=== PATIENT | female | born 1965 | race Caucasian/White ===

== ENCOUNTER → 2017-04-08 | Outpatient (CLI) | payer BC, OTHER ==
--- NOTE | 2017-04-08 10:08 | RAD ---
Exam: Right knee radiographs 04/08/2017 at 0957 hours Indication: Right knee pain, specifically lateral side of the patella. Comparison: None available Technique: 3 views of the right knee are provided. Findings: There is no acute fracture or dislocation. No joint space narrowing. There is mild patellofemoral osteophytosis. No knee joint effusion. No soft tissue swelling. No osseous erosion or soft tissue gas. Bone mineralization is within normal limits. Impression: No acute fracture or dislocation.
== END | disposition home or self-care (01) ==
LOC: DXRADRC 09:53
PROVIDERS: ATTEND Nurse Practitioner Family
DX: M25.561 Pain in right knee (principal)
CPT/HCPCS: 73562

== ENCOUNTER 2017-09-23 15:14 | Emergency (ER) | payer BC, OTHER ==
[2017-09-23] MEDS ORDERED: 0.9 % SODIUM CHLORIDE 10 ML DISP.SYRIN. IV PRN (16:15)
--- NOTE | 2017-09-23 16:16 | PHYS DOC ---
Past History Past Medical History: Cancer, Hypothyroid Past Surgical History: Appendectomy, Cancer Surgery, Cholecystectomy, Hysterectomy, Other Additional Past Surgical Histo: bilateral mastectomy Smoking: Non-smoker Alcohol Use: None Drug Use: None Adult General Chief Complaint Chief Complaint: SMOKE INHALATION [facility] HPI Patient is a pleasant 52-year-old female with a known history of breast cancer requiring chemotherapy, radiation therapy and bilateral mastectomies, history of hypothyroidism on thyroid replacement therapy who presents with dizziness and tingling of her fingers and lips that began last night after she feels she is exposed to possible carbon monoxide. Last evening patient was sitting by the fire when her had additional long to the fire but did not open the tract and flu to provide low oxygen to the room. Patient noted this about an hour and half later after sitting there comfortably resting noted that she was somewhat dizzy, tingling of her fingers and mouth is been intermittent for last 12 hours. 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 She denies any abdominal pain but feels lightheaded and dizzy. She has myalgias and feels generally weak. She denies any chest pain, denies any shortness of breath, denies any hearing loss, tinnitus, shortness of breath, but she does feel very "" dehydrated. She denies any sick contacts, denies any recent travel outside the country or recent anabiotic use. no one else in the home was feeling the same way. Review of Systems Review of Systems Constitutional: Denies fever or chills patient just feels generally weak [] Eyes: Denies change in visual acuity, redness, or eye pain [] HENT: Denies nasal congestion or sore throat [] Respiratory: Denies cough or shortness of breath [] Cardiovascular: No additional information not addressed in HPI [] GI: Denies abdominal pain, positive for nausea and vomiting and diarrhea no constipation : Denies dysuria or hematuria [] Musculoskeletal: Denies back pain or joint pain positive for myalgias[] Integument: Denies rash or skin lesions [] Neurologic: Denies headache, focal weakness positive for paresthesias of the fingers and mouth Endocrine: Denies polyuria or polydipsia [] All other systems were reviewed and found to be within normal limits, except as documented in this note. Current Medications Current Medications Current Medications Medications (Trade) Dose Ordered Sig/Eugenie Start Time Stop Time Status Last Admin Dose Admin Ketorolac Tromethamine (Toradol) 30 mg 1X ONCE 09/23/17 16:15 09/23/17 16:16 UNV Ondansetron HCl (Zofran) 4 mg 1X ONCE 09/23/17 16:15 09/23/17 16:16 UNV Sodium Chloride (Normal Saline Flush) 10 ml QSHIFT PRN 09/23/17 16:15 UNV Allergies Allergies Allergies Coded Allergies Type Severity Reaction Last Updated Verified Penicillins Allergy Unknown 09/23/17 Yes gluten Allergy Unknown 09/23/17 Yes levofloxacin Allergy Unknown 09/23/17 Yes Physical Exam Physical Exam Constitutional: Well developed, well nourished, no acute distress, non-toxic appearance. [] HENT: Normocephalic, atraumatic, bilateral external ears normal, oropharynx moist, no oral exudates, nose normal. [] Eyes: PERRLA, EOMI, conjunctiva normal, no discharge. [] Neck: Normal range of motion, no tenderness, supple, no stridor. [] Cardiovascular:Heart rate regular rhythm, no murmur [] Lungs & Thorax: Bilateral breath sounds clear to auscultation [] Abdomen: Bowel sounds normal, soft, no tenderness, no masses, no pulsatile masses. [] Skin: Warm, dry, no erythema, no rash. [] Back: No tenderness, no CVA tenderness. [] Extremities: No tenderness, no cyanosis, no clubbing, ROM intact, no edema. [] Neurologic: Alert and oriented X 3, normal motor function, normal sensory function, no focal deficits noted. Patient has normal intrinsic strength of her hands bilaterally no evidence of carpopedal spasms normal sensation to light touch over her hands and face and arms.[] Psychologic: Patient is mildly anxious but judgment is intact. EKG EKG []KG time 4:35 PM read by me 09/23/2017 demonstrates sinus rhythm at 70 heart rate of 77 there is a P wave there were QRS, there is a Q-wave located in V1 and V2 which might represent an old IA. Patient's MS interval is normal at 140, QRS width is 100 which is normal, QTC is 450 which is normal. Patient has no ST segment or T-wave changes consistent with acute coronary ischemia. Radiology/Procedures Radiology/Procedures [] Course & Med Decision Making Course & Med Decision Making Pertinent Labs and Imaging studies reviewed. (See chart for details) []Patient presents with nausea vomiting diarrhea after being exposed to what she believes might be a, monoxide exposure. Patient is not exhibiting any focal neurologic deficits or headache she is having some tingling of her hands and feet which may be related to hyperventilation she is not hypoxic on initial evaluation her lungs are clear to auscultation. My differential includes but not limited to: Neurally mediated vasovagal syncope, situational syncope, cardiac sinus syncope , orthostatic hypertension, medications, psychiatric interventions, neurologic syncope, cardiogenic syncopal B, to include organic heart disease congestive heart failure, cardiac dysrhythmia, seizure disorder, stroke or transient ischemic attack, bradycardia dysrhythmias, tachycardia dysrhythmias, PT, V. fib V. fib, cardiac abnormalities like first degree secondary third-degree AV blocks , prolonged QT, hypertrophic Servando myopathy, severe pulmonic stenosis, pulmonary arterial hypertension, atrial myxomas, aortic stenosis, valvular failure, alcohol consumption, adrenal insufficiency, drug effects from things like antidepressants, antihypertensive agents like beta blockers, vasodilators including calcium channel blockers and nitrates, autonomic insufficiency. Patient presents with what she might believes is a monoxide exposure. Patient's CBC, CMP are unremarkable, patient's troponin is negative, She is influenza swab is also negative for a and B. Patient's BUN/creatinine also normal, calcium levels normal magnesium level normal Laboratory Tests Test 09/23/17 16:30 White Blood Count 7.0 x10^3/uL (4.0-11.0) Red Blood Count 4.87 x10^6/uL (3.50-5.40) Hemoglobin 14.4 g/dL (12.0-15.5) Hematocrit 42.5 % (36.0-47.0) Mean Corpuscular Volume 87 fL (79-100) Mean Corpuscular Hemoglobin 30 pg (25-35) Mean Corpuscular Hemoglobin Concent 34 g/dL (31-37) Red Cell Distribution Width 13.4 % (11.5-14.5) Platelet Count 198 x10^3/uL (140-400) Neutrophils (%) (Auto) 94 % (31-73) H Lymphocytes (%) (Auto) 3 % (24-48) L Monocytes (%) (Auto) 3 % (0-9) Eosinophils (%) (Auto) 0 % (0-3) Basophils (%) (Auto) 0 % (0-3) Neutrophils # (Auto) 6.6 x10^3uL (1.8-7.7) Lymphocytes # (Auto) 0.2 x10^3/uL (1.0-4.8) L Monocytes # (Auto) 0.2 x10^3/uL (0.0-1.1) Eosinophils # (Auto) 0.0 x10^3/uL (0.0-0.7) Basophils # (Auto) 0.0 x10^3/uL (0.0-0.2) Sodium Level 138 mmol/L (136-145) Potassium Level 3.6 mmol/L (3.5-5.1) Chloride Level 102 mmol/L (98-107) Carbon Dioxide Level 26 mmol/L (21-32) Anion Gap 10 (6-14) Blood Urea Nitrogen 25 mg/dL (7-20) H Creatinine 0.9 mg/dL (0.6-1.0) Estimated GFR (Cockcroft-Gault) 65.2 Glucose Level 132 mg/dL (70-99) H Calcium Level 8.6 mg/dL (8.5-10.1) Total Bilirubin 0.6 mg/dL (0.2-1.0) Direct Bilirubin 0.2 mg/dL (0.0-0.2) Aspartate Amino Transferase (AST) 105 U/L (15-37) H Alanine Aminotransferase (ALT) 123 U/L (14-59) H Alkaline Phosphatase 89 U/L (46-116) Creatine Kinase 87 U/L (26-192) Creatine Kinase MB (Mass) 0.9 ng/mL (0.0-3.6) Creatine Kinase MB Relative Index 1.0 % (0-4) Troponin I Quantitative < 0.017 ng/mL (0-0.055) Total Protein 6.9 g/dL (6.4-8.2) Albumin 3.8 g/dL (3.4-5.0) Lipase 103 U/L (73-393) Influenza Type A (Rapid) Negative (NEGATIVE) Influenza Type B (Rapid) Negative (NEGATIVE) We are still waiting for the, monoxide level to be returned for us from [facility]. Time is now 5:40 PM I will turn over care to oncoming physician Dr. Arteaga depending on level of, monoxide exposure patient be released if negative, at this point she's been on oxygen resting quietly and comfortably getting fluid resuscitated and screened for any other signs and causes of her nausea vomiting diarrhea. 1850: Patient feeling better after IV fluid and Zofran and tolerated oral intake. mammography technician called me and stated the carbon monoxide blood sample was sent in a nonheparinized tube and reported 3 that is mildly elevated because of non-heparinized sample. Patient informed about the situation and she does not want to repeat the blood test and states she feels fine and feels comfortable to go home. Patient instructed to take liquid diet for the next 24 hours. Dragon Disclaimer Dragon Disclaimer This electronic medical record was generated, in whole or in part, using a voice recognition dictation system. Departure Departure: Impression: Primary Impression: Carbon monoxide exposure Additional Impressions: Nausea and vomiting Diarrhea Disposition: HOME, SELF-CARE (At 1855) Condition: STABLE Referrals: NICOLE KIMBLE APRN (PCP) Patient Instructions: Diarrhea, Nausea and Vomiting Additional Instructions: discharge: I've spoken with the patient and/or caregivers. I've explained the patient's condition, diagnosis and treatment plan based on information available to me at this time. I've answered the patient's and/or caregivers questions and addressed any concerns. The patient and/or caregivers have a good understanding the patient's diagnosis, condition and treatment plan as can be expected at this point. Vital signs have been stabilized. The patient's condition is stable for discharge from the emergency department. The patient will pursue further outpatient evaluation with her primary care provider or other designated consulting physician as outlined in the discharge instructions. Patient and/or caregivers are agreeable to this plan of care and follow-up instructions have been explained in detail. The patient and/or caregivers have received these instructions in written format and expressed understanding of these discharge instructions. The patient and her caregivers are aware that if any significant change in condition or worsening of symptoms should prompt him to immediately return to this of the closest emergency department. If an emergent department is not readily available I would encourage him to call 911. Scripts Ondansetron (ZOFRAN ODT) 4 Mg Tab.rapdis 1 TAB SL Q8HRS, #15 TAB Prov: KAMERON GONZALEZ MD 09/23/17 Problem Qualifiers PRIYANK WELCH MD Sep 23, 2017 16:16 KAMERON GONZALEZ MD Sep 23, 2017 18:55
[2017-09-23] MEDS ORDERED: ONDANSETRON PF 4 MG/2 ML VIAL. IV ONE (16:30)
[2017-09-23] MEDS ORDERED: IV NORMAL SALINE 1,000ML 1,000 ML IV SCH (16:30)
[2017-09-23] MEDS ORDERED: KETOROLAC 30 MG/ML VIAL. IV ONE (16:30)
[2017-09-23 17:11] LABS: BASO % 0 % (0-3); EOS % 0 % (0-3); HEMATOCRIT 42.5 % (36.0-47.0); HEMOGLOBIN 14.4 g/dL (12.0-15.5); LYMPH # 0.2 x10^3/uL (1.0-4.8); LYMPH % 3 % (24-48); MEAN CORPUSCULAR HEMOGLOBIN 30 pg (25-35); MEAN CORPUSCULAR HGB CONC 34 g/dL (31-37); MEAN CORPUSCULAR VOLUME 87 fL (79-100); MONO # 0.2 x10^3/uL (0.0-1.1); MONO % 3 % (0-9); NEUT # 6.6 x10^3uL (1.8-7.7); NEUT % 94 % (31-73); PLATELET COUNT 198 x10^3/uL (140-400); RED BLOOD COUNT 4.87 x10^6/uL (3.50-5.40); RED CELL DISTRIBUTION WIDTH 13.4 % (11.5-14.5)
[2017-09-23 17:29] LABS: ALBUMIN 3.8 g/dL (3.4-5.0); CALCIUM 8.6 mg/dL (8.5-10.1); CREATININE 0.9 mg/dL (0.6-1.0); DIRECT BILIRUBIN 0.2 mg/dL (0.0-0.2); GFR 65.2; POTASSIUM 3.6 mmol/L (3.5-5.1); TOTAL BILIRUBIN 0.6 mg/dL (0.2-1.0); TOTAL PROTEIN 6.9 g/dL (6.4-8.2)
[2017-09-23 17:31] LABS: INFLUENZA A PATIENT NEGATIVE (NEGATIVE); INFLUENZA B PATIENT NEGATIVE (NEGATIVE)
[2017-09-23 17:50] LABS: BACTERIA,URINE 0 /HPF (0-FEW); BILIRUBIN,URINE NEG (NEG); CLARITY,URINE CLEAR; COLOR,URINE YELLOW; GLUCOSE,URINE NEG (NEG); NITRITE,URINE NEG (NEG); RBC,URINE 0 /HPF (0-2); SQUAMOUS EPITHELIAL CELL,UR OCC /LPF; UROBILINOGEN,URINE 0.2 mg/dL (0.2 mg/dL); WBC,URINE OCC /HPF (0-4)
--- NOTE | 2017-09-23 18:16 | EKG ---
[address] [address] Test Date: 2017-09-23 Test Time: 16:35:58 Pat Name: MAGNOLIA ETIENNE Department: Room: Gender: F Director Of Community Education: KAYLA : 1965 Requested By: PRIYANK WELCH Order Number: [id number] Reading MD: Measurements Intervals [place] Rate: 77 P: 75 [place]: 140 QRS: 89 QRSD: 100 T: 63 QT: 396 QTc: 450 Interpretive Statements SINUS RHYTHM QRS(T) CONTOUR ABNORMALITY CONSIDER ANTEROSEPTAL MYOCARDIAL DAMAGE POSSIBLY ABNORMAL ECG RI6.01 No previous ECG available for comparison
[2017-09-23] MEDS ORDERED: ONDA4TAB10 SL (18:54)
[2017-09-23 19:04] VITALS: BP 98/59
== END 2017-09-23 19:04 | disposition home or self-care (01) ==
LOC: ER 15:14
DX: T58.8X1A Toxic effect of carbon monoxide from other source, accidental (unintentional), initial encounter (principal); R19.7 Diarrhea, unspecified; E03.9 Hypothyroidism, unspecified; Z90.13 Acquired absence of bilateral breasts and nipples; Z88.0 Allergy status to penicillin; Z88.1 Allergy status to other antibiotic agents; Z88.8 Allergy status to other drugs, medicaments and biological substances; Y92.89 Other specified places as the place of occurrence of the external cause
CPT/HCPCS: 36415; 80048; 80076; 81001; 82375; 82553; 83690; 84484; 85025; 87804; 93005; 96361; 96374; 96375; 99285; J1885; J2405; J7030

== ENCOUNTER → 2018-04-02 | Outpatient (CLI) | payer BC, OTHER ==
[~2018-04-02] MED LIST: IOHEXOL 240 MG/ML 50ML VIAL. PO ONE; IOHEXOL 300 MG/ML 75 ML VIAL. IV ONE; ONDA4TAB10 SL
--- NOTE | 2018-04-03 08:21 | RAD ---
PQRS Compliance Statement: One or more of the following individualized dose reduction techniques were utilized for this examination: 1. Automated exposure control 2. Adjustment of the mA and/or kV according to patient size 3. Use of iterative reconstruction technique CT abdomen with contrast April 02, 2018 INDICATION: Right upper quadrant abdominal pain for one week. Nausea. History of breast cancer and cholecystectomy. COMPARISON: CT abdomen/pelvis December 13, 2007 TECHNIQUE: Multiple axial CT images of the abdomen were obtained after the intravenous administration of 75 cc Omnipaque 300. Coronal and sagittal reformats are provided. FINDINGS: The lung bases are clear. Heart size is within normal limits. No suspicious hepatic lesion is visualized. Spleen is not enlarged. Adrenal glands are normal in appearance. Pancreas is normal in appearance. Gallbladder is surgically absent. There is minimal intrahepatic biliary ductal dilatation. Common bile duct measures up to 6 mm. The abdominal aorta is normal in course and caliber. There are no pathologically enlarged lymph nodes in the abdomen. There is no abdominal free fluid. There is no free intraperitoneal air. The kidneys enhance symmetrically. There is no suspicious renal mass. There is no hydronephrosis. There are no suspected calculi within the kidneys, ureters or urinary bladder. Oral contrast was administered. Opacified bowel loops demonstrate normal mucosal fold pattern. Small and large bowel are normal in caliber. There is no evidence for bowel obstruction. There are no pericolonic inflammatory changes. Appendix is surgically absent. No suspicious osseous abnormalities visualized. IMPRESSION: 1. Status post cholecystectomy with minimal intrahepatic biliary ductal dilatation. Findings may be secondary to reservoir effect status post cholecystectomy. However, correlation with hepatobiliary enzymes may be of benefit. If there is persistent clinical concern, further evaluation with MRCP may be of benefit. 2. No suspicious hepatic mass is visualized. Electronically signed by: Alfreda Hurtado MD (04/03/2018 8:18 AM) [id number]
== END | disposition home or self-care (01) ==
LOC: RAD 17:11
PROVIDERS: ATTEND Family Medicine
DX: R10.11 Right upper quadrant pain (principal); R11.0 Nausea; E03.9 Hypothyroidism, unspecified; Z90.49 Acquired absence of other specified parts of digestive tract; Z85.3 Personal history of malignant neoplasm of breast; Z90.13 Acquired absence of bilateral breasts and nipples; Z88.0 Allergy status to penicillin; Z88.1 Allergy status to other antibiotic agents; Z88.8 Allergy status to other drugs, medicaments and biological substances
CPT/HCPCS: 74160; Q9966; Q9967

== ENCOUNTER → 2018-07-30 | Outpatient (CLI) | payer BC, OTHER ==
[~2018-07-30] MED LIST changes: -IOHEXOL 240 MG/ML 50ML VIAL. PO ONE; -IOHEXOL 300 MG/ML 75 ML VIAL. IV ONE
--- NOTE | 2018-07-30 18:31 | RAD ---
Left shoulder, 3 views, 07/30/2018: HISTORY: Left shoulder pain No fracture or dislocation is identified. There is mild spurring at the AC joint. A small smooth sclerotic focus in the proximal left humeral shaft is probably an old healed fibrous cortical defect. Surgical clips are projected over the left axilla. IMPRESSION: 1. Mild degenerative change. 2. No acute bony abnormality is detected. Electronically signed by: Cj Noriega MD (07/30/2018 6:27 PM) [facility]
== END | disposition home or self-care (01) ==
LOC: PMG 10:36
PROVIDERS: ATTEND Registered Nurse
DX: M19.012 Primary osteoarthritis, left shoulder (principal); M75.82 Other shoulder lesions, left shoulder
CPT/HCPCS: 73030

== ENCOUNTER → 2020-10-25 | Outpatient (CLI) | payer BC, OTHER ==
--- NOTE | 2020-10-25 13:46 | RAD ---
XR CHEST 2V INDICATION: BREAST CANCER . COMPARISON STUDY: 02/07/2015. FINDINGS: Lungs: Normal lung volume. No pulmonary mass or consolidation. The tracheobronchial tree and hilar st ructures are normal. Pleura: No pleural effusion or pneumothorax. Heart and Mediastinum: The cardiomediastinal silhouette is normal. The great vessels of the thorax ar e normal. Bones and Soft Tissues: The bones and soft tissues are within normal limits. IMPRESSION: No acute cardiopulmonary process. Electronically signed by: Killian Houston MD (10/25/2020 1:43 PM) [id number]
--- NOTE | 2020-10-25 14:56 | RAD ---
Bone densitometry study: Date: 10/25/2020. Indication: Screening. Procedure: DEXA study. Findings: The bone mineral density from L1 through L4 is 1.014 grams/cm squared with T-score -1.4. The bone mineral density in the right hip involving the neck of the right femur is 0.850 grams per cm squared with a T-score of -0.9. Impression: Normal mineral density in the right hip and osteopenia in the lumbar spine. Electronically signed by: Chelsey Champion MD (10/25/2020 2:54 PM) [id number]
== END ==
LOC: DXRAD 10:01
PROVIDERS: ATTEND Physician Assistant Medical
DX: C50.919 Malignant neoplasm of unspecified site of unspecified female breast (principal); M85.88 Other specified disorders of bone density and structure, other site; Z78.0 Asymptomatic menopausal state
CPT/HCPCS: 71046; 77080